=== PATIENT | female | born 1970 | race Caucasian/White ===

== ENCOUNTER → 2016-10-21 | Outpatient (CLI) | payer OTHER | LOC: MC.RAD 09:00 | DX: Z12.39 Encounter for other screening for malignant neoplasm of breast (principal) ==

== ENCOUNTER → 2016-11-02 | Outpatient (CLI) | payer OTHER | LOC: MC.RAD 10:00 | DX: N61.0 Mastitis without abscess (principal); N60.41 Mammary duct ectasia of right breast | CPT/HCPCS: 30635 ==

== ENCOUNTER → 2016-11-30 | Outpatient (CLI) | payer OTHER | LOC: COL.RAD 08:19 | DX: R06.02 Shortness of breath (principal); Z86.711 Personal history of pulmonary embolism | CPT/HCPCS: A9539; A9540 ==

== ENCOUNTER → 2017-04-04 | Outpatient (CLI) | payer OTHER | LOC: COL.VAS 03-28 15:15 | DX: R06.02 Shortness of breath (principal) ==

== ENCOUNTER → 2017-07-04 | Outpatient (CLI) | payer OTHER | LOC: COL.PUL 14:44 | DX: R06.02 Shortness of breath (principal) | CPT/HCPCS: J7674 ==